=== PATIENT | female | born 1980 | race Caucasian/White ===

== ENCOUNTER → 2023-02-27 | Outpatient (CLI) | payer OTHER ==
--- NOTE | 2023-03-03 12:07 | MM ---
Reason for Exam: Screening (asymptomatic). Patient History: Menarche at age 14. First Full-Term at age 26. Patient has history of breast feeding. Paternal grandmother (great) had breast cancer at or over age 50. Maternal aunt had breast cancer. Maternal aunt had colorectal cancer at or over age 50. Last menstrual period: 02/06/2023 Risk Values: Carmina 5 year model risk: 0.5%. NCI Lifetime model risk: 9.0%. Tissue Density: The breast tissue is heterogeneously dense. This may lower the sensitivity of mammography. Findings: Analyzed By CAD. There is no suspicious group of microcalcifications or new suspicious mass. Overall Assessment: Negative, BI-RAD 1 Management: Screening Mammogram of both breasts in [address] [facility] will attempt to contact patient to return for supplemental views and ultrasound if indicated. Patient should continue monthly self-breast exams. A clinical breast exam by your physician is recommended on an annual basis. This exam should not preclude additional follow-up of suspicious palpable abnormalities. Note on Carmina scores and lifetime risk: 1. A Carmina score greater than 3% is considered moderate risk. If this is the case, consider specialist referral to assess eligibility for a risk reducing agent. 2. If overall lifetime risk for the development of breast cancer is 20% or higher, the patient may qualify for future screening with alternating mammogram and breast MRI. Electronically signed and approved by: Jay Bojorquez DO
== END | disposition home or self-care (01) ==
LOC: RADMAMWWP 13:55
PROVIDERS: ATTEND Family Medicine
DX: Z12.31 Encounter for screening mammogram for malignant neoplasm of breast (principal); Z80.3 Family history of malignant neoplasm of breast
CPT/HCPCS: 77063; 77067